=== PATIENT | female | born 1960 | race African-American/Black ===

== ENCOUNTER → 2016-11-20 | Outpatient (CLI) | payer OTHER ==
[~2016-11-20] MED LIST: ABILIFY; ABILIFY2 MG PO; ATORVASTATIN CALCIUM; BACTRIM,SEPT1 TABLET PO; BUPRENORPHIN-N1 EACH SL; Benicar; CLEOCIN300 MG PO; DESYREL100 MG PO; EFFEXOR XR75 MG PO; Ecotrin PO; FIORICET,ESG1 TABLET PO; FLEXERIL10 MG PO; LISINOPRIL20 MG PO; LORTAB 5-500 T1 EACH PO; Lidoderm 5% Patch TD; Mobic PO; NAPROSYN500 MG PO; NAPROXEN SODIU550 MG PO; NO MEDS; OMEPRAZOLE20 M2 PO; PERCOCET 5/31 TABLET PO; PROMETHAZINE HC25 M1 PO; PriLOSEC PO; QUETIAPINE FUMA50 MG PO; SEROQUEL XR400 MG PO; SEROQUEL100 MG PO; SEROQUEL200 MG PO; SEROQUEL50 MG PO; SEROquel PO; Suboxone 8 mg-2 mg SL; TORADOL10 MG PO; TRAZODONE HCL100 MG PO; TYLENOL WITH C1 EACH PO; Tylenol Regular Stre PO; VALIUM5 MG PO; WELLBUTRIN SR150 MG PO; WELLBUTRIN XL300 MG PO; XANAX2 MG PO; ZITHROMAX Z-PA250 MG PO; ZOCOR40 MG PO; ZOFRAN4 MG PO
== END | disposition home or self-care (01) ==
LOC: RES 09:39
DX: R05 Cough (principal)
CPT/HCPCS: 94070; 94726; 94729

== ENCOUNTER → 2017-05-27 | Outpatient (CLI) | payer MEDICARE, OTHER | END | disposition home or self-care (01) | LOC: CDC 10:48 | DX: Z01.810 Encounter for preprocedural cardiovascular examination (principal) | CPT/HCPCS: 93000 ==

== ENCOUNTER 2017-08-23 17:35 | Observation (INO) | payer OTHER ==
[~2017-08-23] VITALS: Ht 152.4 cm; Wt 68.9 kg
[2017-08-23 22:28] LABS: HEMATOCRIT 45.7 % (36.0-46.0); MCH 32.9 PG (29.0-34.0); PLATELET COUNT 297 K/uL (156-360); RBC DIS.WIDTH-CV 13.8 % (11.8-14.6); RBC DIS.WIDTH-SD 48.2 % (39-53); RED BLOOD COUNT 4.86 M/uL (3.80-5.20); RETICULOCYTE COUNT 1.9 % (0.5-1.8); WHITE BLOOD COUNT 10.2 K/uL (4.1-10.2)
[2017-08-23 22:36] LABS: CHLORIDE 104 mEq/L (99-109); POTASSIUM 3.9 mEq/L (3.7-5.4); SODIUM 139 mEq/L (136-147)
[2017-08-23 22:39] LABS: GLUCOSE 97 mg/dL (70-99)
[2017-08-23 22:40] LABS: ANION GAP 15 MEQ/L (2-14)
[2017-08-23 22:41] LABS: TOTAL BILIRUBIN 0.5 mg/dL (0.0-1.0)
[2017-08-23 22:42] LABS: ALKALINE PHOSPHATASE 115 IU/L (3-129); GFR ESTIMATE (CALCULATED) > 59 mL/min/
[2017-08-23 22:43] LABS: UREA NITROGEN (BUN) 8 mg/dL (9-23)
[2017-08-23 22:46] LABS: LIPASE 25 U/L (1.0-51.0)
[2017-08-24] MEDS ORDERED: FENOFIBRATE160 M1 PO (01:31)
[2017-08-24] MEDS ORDERED: LOSARTAN-HCTZ1 EACH PO (01:32)
[2017-08-24] MEDS ORDERED: POTASSIUM CHLO20 ME1 PO (01:32)
[2017-08-24] MEDS ORDERED: PANTOPRAZOLE SO40 MG PO (01:33)
[2017-08-24] MEDS ORDERED: ATORVASTATIN CA40 MG PO (01:34)
[2017-08-24] MEDS ORDERED: PROAIR HFA8.5 GM IH (01:34)
[2017-08-24 05:09] VITALS: BP 119/80
[2017-08-24 07:43] VITALS: BP 117/65
[2017-08-24 08:29] LABS: POINT-OF-CARE METER ID UU13113831
[2017-08-24 10:34] LABS: AMPHETAMINES QUANT VALUE 0 NG/ML; BARBITUATES QUANT VALUE 0 NG/ML; BENZODIAZEPINES, URINE SCREEN POSITIVE (200 ng/mL); MARIJUANA QUANT VALUE 0 NG/ML; PHENCYCLIDINE QUANT VALUE 0 NG/ML
[2017-08-24] MEDS ORDERED: ZOFRAN4 MG PO (11:55)
[2017-08-24] MEDS ORDERED: PREDNISONE10 MG PO (11:57)
== END 2017-08-24 12:25 | disposition home or self-care (01) ==
LOC: EME 17:35 → EDOF 08-24 03:03 → ENRESERV 08-24 03:15 → 5WEST 08-24 04:44
PROVIDERS: Emergency Medicine; Hospitalist
DX: J44.1 Chronic obstructive pulmonary disease with (acute) exacerbation (principal); K52.9 Noninfective gastroenteritis and colitis, unspecified; R10.9 Unspecified abdominal pain; I10 Essential (primary) hypertension; D57.1 Sickle-cell disease without crisis; F17.210 Nicotine dependence, cigarettes, uncomplicated; G43.909 Migraine, unspecified, not intractable, without status migrainosus; F32.9 Major depressive disorder, single episode, unspecified; F41.9 Anxiety disorder, unspecified; E11.9 Type 2 diabetes mellitus without complications; E78.5 Hyperlipidemia, unspecified; F19.11 Other psychoactive substance abuse, in remission
CPT/HCPCS: 71020; 74176; 80053; 80306 90; 82948; 83605; 83690; 83880; 85027; 85045; 87040; 93005; 94640; 99202; 99281; 99285; G0378; J1644; J2270; J2405; J2765; J2920; J7030; S0028